=== PATIENT | female | born 1960 | race Asian ===

== ENCOUNTER 2023-01-05 04:49 | Emergency (ER) | payer OTHER, SELFPAY ==
[2023-01-05] VITALS (8 sets, daily range): BP systolic 97–188; BP diastolic 47–76; PULSE 65–82; RESP 14–20; TEMP 36.5; O2SAT 96–100; BMI 26.9
--- NOTE | ~2023-01-05 | XR_ITS ---
EXAMINATION: XR CHEST CLINICAL INFORMATION: Chest pain. COMPARISON: None available. TECHNIQUE: Frontal view of the chest was obtained. FINDINGS: No significant abnormality is noted involving the heart, lungs, mediastinum, bony thorax or soft tissues. XR/XR chest 1V IMPRESSION: No significant abnormality identified.
--- NOTE | 2023-01-05 04:51 | ECG_ITS ---
Test Reason : CP Blood Pressure : / mmHG Vent. Rate : 064 BPM Atrial Rate : 064 BPM P-R Int : 120 ms QRS Dur : 090 ms QT Int : 406 ms P-R-T Axes : 040 077 074 degrees QTc Int : 418 ms Normal sinus rhythm Normal ECG No previous ECGs available Referred By: Generic ED Physician Electronically Signed By:ANICETO WHELAN MD
[2023-01-05 05:09] LABS: MANUAL DIFF FLAG NO
[2023-01-05 05:10] LABS: Basophils Absolute Auto 0.1 X10*3/uL (0.0-0.2); Basophils Percent Auto 0.4 % (0-2); Eosinophils Absolute Auto 0.4 X10*3/uL (0.0-0.4); Eosinophils Percent Auto 3.3 % (0-4); Hematocrit 40.1 % (37.0-47.0); Hemoglobin 13.3 g/dl (12.0-16.0); Imm Gran Abs Auto 0.02 X10*3/uL (0.00-0.03); Imm Gran Pct Auto 0.2 % (0.0-0.4); Lymphocytes Absolute Auto 4.6 X10*3/uL (1.2-4.9); Lymphocytes Percent Auto 40.6 % (20-40); Mean Corpuscular HGB Conc 33.2 g/dl (31.0-35.0); Mean Corpuscular Hemoglobin 27.7 pg (27.0-33.0); Mean Corpuscular Volume 83.4 fL (80.0-98.0); Mean Platelet Volume 12.1 fL (9.4-12.3); Monocytes Absolute Auto 0.9 X10*3/uL (0.1-1.2); Monocytes Percent Auto 8.3 % (2-11); Neutrophils Absolute Auto 5.3 x10*3/uL (2.0-8.3); Neutrophils Percent Auto 47.2 % (45-73); Platelet Count 222 X10*3/uL (160-400); Red Blood Count 4.81 X10*6/uL (4.20-5.50); Red Cell Distribution Width 13.8 % (11.0-16.0); White Blood Count 11.3 X10*3/uL (4.8-10.8)
--- NOTE | 2023-01-05 05:12 | ED.CHESTPAIN ---
HPI - Chest Pain General Chief Complaint: Chest Pain Stated Complaint: Chest pain Time Seen by Provider: 01/05/23 05:12 Source: patient and family (Daughter) Mode of arrival: ambulatory Limitations: language barrier (Patient is from [place], 1st language is Mongolian, she does speak Urdu) History of Present Illness HPI narrative: 62-year-old female with history of high cholesterol and and diabetes x8 years on metformin who presents emergency department for evaluation of chest pain that woke her up at 02:00 hours. She states that the pain is a pressure-like sensation in her left chest, the pain radiates to her neck and down her left arm to her 4th and 5th fingers. She also feels short of breath. She states the pain was 7/10 at its worse and was 4/10 at the time of my evaluation. The patient states that 2 days prior she went for a walk and had a similar pain that lasted minutes and then resolved with rest. The patient took a medicine from [place] called Lowplat(Plavix) 75 mg orally prior to coming to the emergency department. Related Data Allergies Allergy/AdvReac Type Severity Reaction Status Date / Time Seasonal Allergies AdvReac Itching Verified 01/05/23 05:01 Review of Systems Review of Systems: Yes all other systems are reviewed and are negative [facility] Past Medical History Attestation statement: The following information was validated with the patient. [facility] Narrative: Past medical history: Diabetes mellitus, hypertension Social history: Patient lives in [place] is visiting her daughter, she denies tobacco, alcohol and drug use. Family history: She states that both parents had myocardial infarctions in their 60s. Social History Social History Alcohol intake: never Smoked in Last 30 Days: No Use of substances other than those prescribed or required for medical reasons: No Advance Directives: No Advance Directives Information Provided: Yes Physical Exam Vital Signs: Vital Signs: Last Vital Signs Temp 97.7 F 01/05/23 04:53 Pulse 77 01/05/23 05:50 Resp 14 01/05/23 05:50 BP 134/69 01/05/23 05:50 Pulse Ox 97 01/05/23 05:50 O2 Del Method Room Air 01/05/23 05:50 BMI result Body Mass Index 26.9 Vital signs were normal Exam: General: Awake, appears anxious and in distress secondary to pain Head: Normocephalic, atraumatic EENT: PERRL, Lids normal, sclera normal, conjunctiva normal, nose normal , ears normal, throat without erythema or exudates Neck: Supple, no adenopathy, no trachea midline or C-spine tenderness Lung: breath sounds symmetric, no wheezing, rales or rhonchi Chest: symmetric movement, nontender Heart: regular rate and rhythm, normal S1, S2 no murmurs or rubs Abdomen: soft, non-tender, nondistended, normal bowel sounds Back: no vertebral tenderness, no CVAT Extremities: no deformities, moves all extremities symmetrically Skin: no rashes, no lesion, normal color and warmth Neuro: Awake, alert, oriented, normal speech, cranial nerves intact, moves all extremities symmetrically Psych: Pleasant, anxious Medications Administered Generic Name Dose Route Start Last Admin Trade Name Freq PRN Reason Stop Dose Admin Sodium Chloride 1,000 mls @ 150 mls/hr 01/05/23 05:21 01/05/23 06:07 Ns IV 01/05/23 12:00 Infused .[id number] STA Infusion Nitroglycerin 0.4 mg 01/05/23 05:21 01/05/23 05:37 Nitroglycerin 0.4 Mg Tab.Subl SUBLINGUAL 0.4 mg [id number] PRN Administration Chest pain Discontinued Medications Generic Name Dose Route Start Last Admin Trade Name Freq PRN Reason Stop Dose Admin Aspirin 324 mg 01/05/23 05:21 01/05/23 05:27 Aspirin 81 Mg Tab.Chew PO 01/05/23 05:22 324 mg ONCE ONE Administration Atorvastatin Calcium 80 mg 01/05/23 05:23 01/05/23 05:28 Atorvastatin Calcium 80 Mg Tablet PO 01/05/23 05:24 80 mg ONCE ONE Administration Fentanyl 50 mcg 01/05/23 05:37 01/05/23 05:40 Fentanyl Citrate/Pf 100 Mcg/2 Ml Vial IVPUSH 01/05/23 05:38 50 mcg ONCE ONE Administration Protocol Heparin Sodium (Porcine) 4,000 unit 01/05/23 05:23 01/05/23 05:28 Heparin Sodium,Porcine 5,000 Unit/Ml Vial IVPUSH 01/05/23 05:24 4,000 unit ONCE ONE Administration Medical Decision Making Medical Decision Making MDM Narrative: 62-year-old female with history of high cholesterol and and diabetes x8 years on metformin who presents emergency department for evaluation of chest pain, neck pain and left arm pain that woke her up at 02:00 hours. Patient had similar pain several days prior with exertion, lasted minutes and was not a severe. Patient's 12 EKG is concerning for possible ST segment elevation in the inferior leads but less than 1 mm. Patient was given nitroglycerin 0.4 mg sublingually x2 which seem to make her pain worse. Pain was then given fentanyl 50 mg IV and fentanyl 25 mg IV with improvement of her pain. Patient was also given atorvastatin 80 mg orally and heparin 400 mg IV. I did discuss the patient's presentation with the interventional cardiology Dr. Guillen who accepted the patient as an ED to lab coordinator transfer. 06:21 My interpretation of the patient's one-view chest x-ray is normal mediastinum, no CHF or other abnormalities My interpretation patient's laboratory evaluation is as follows elevated WBC 85115, no anemia with an H&H of 13.3 and 40.1, platelet count was normal 222,000. High sensitive troponin I was below detectable limits. COVID-19 was negative. Patient was transfer to [facility] my ALS ambulance, at the time the patient left the emergency department she stated that her pain was improving and was 2/10. Differential Diagnosis Differential Diagnoses: The differential diagnosis associated with the presentation includes Admission/Observation Consideration of admission/observation: Escalation of care including admission/observation considered Consult Healthcare Provider Management of the patient was discussed with: Returner ([facility] interventional cardiology) Lab Data [facility] Lab Attestation statement: I reviewed the patient's lab results. See above MDM 01/05/23 05:05 01/05/23 05:05 Labs: Lab Results 01/05/23 01/05/23 Range/Units 05:05 05:36 WBC 11.3 H (4.8-10.8) X10*3/uL RBC 4.81 (4.20-5.50) X10*6/uL Hgb 13.3 (12.0-16.0) g/dl Hct 40.1 (37.0-47.0) % MCV 83.4 (80.0-98.0) fL MCH 27.7 (27.0-33.0) pg MCHC 33.2 (31.0-35.0) g/dl RDW 13.8 (11.0-16.0) % Plt Count 222 (160-400) X10*3/uL MPV 12.1 (9.4-12.3) fL Immature Gran % (Auto) 0.2 (0.0-0.4) % Neut % (Auto) 47.2 (45-73) % Lymph % (Auto) 40.6 H (20-40) % [place] % (Auto) 8.3 (2-11) % Eos % (Auto) 3.3 (0-4) % Baso % (Auto) 0.4 (0-2) % Lymph # (Auto) 4.6 (1.2-4.9) X10*3/uL [place] # (Auto) 0.9 (0.1-1.2) X10*3/uL Eos # (Auto) 0.4 (0.0-0.4) X10*3/uL Baso # (Auto) 0.1 (0.0-0.2) X10*3/uL Abs Immat Gran (auto) 0.02 (0.00-0.03) X10*3/uL Absolute Neuts (auto) 5.3 (2.0-8.3) x10*3/uL Absolute Nucleated RBC 0.000 (0.0-0.012) X10*3/uL Nucleated RBC % (auto) 0.0 (0.0-0.2) /100WBC Sodium 141 (135-145) mmol/L Potassium 4.4 (3.3-5.1) mmol/L Chloride 105 (96-108) mmol/L Carbon Dioxide 25 (22-29) mmol/L Anion Gap 15 (12-20) BUN 17 H (9-16) mg/dL Creatinine 0.83 (0.5-1.4) mg/dL Estim Creat Clear Calc 67.2 Estimated GFR > 60 Random Glucose 156 H (60-115) mg/dL Calcium 9.4 (8.4-10.2) mg/dL Total Bilirubin 0.5 (0.0-1.0) mg/dL AST 25 (5-31) U/L ALT 27 (0-31) U/L Alkaline Phosphatase 61 (39-117) U/L Troponin I High Sens < 2.7 (<3.5-17.0) ng/L Total Protein 7.6 (6.5-8.0) g/dL Albumin 4.4 (3.5-5.0) g/dL COVID-19 (JENNIFER) Negative (Negative) COVID-19 Clin Com See Note Independent Interpretation I performed an independent interpretation of an: EKG Interpretation: My independent interpretation the patient's 12 EKG done at 04:54 hours is as follows: Normal sinus rhythm with a rate of 64, normal WI interval, QRS duration QTC interval, less than [address] segment elevation leads 2, 3 and AVF, normal T-waves, no PACs or PVCs Radiology Impression Discussion of test interpretation with radiology: I have reviewed the radiologist's reading. Radiologist Impression: XR chest 1V IMPRESSION: No significant abnormality identified. Dictated By: Jerzy Ortiz Critical Care Time Critical Care Time Critical Care Time: Yes Total Critical Care Time: 45 Attestation: Critical Care: The patient was critically ill with a high probability of imminent or life threatening deterioration. I spent greater than 30 minutes of discontinuous time evaluating the patient,delivering critical care at the bedside, discussing and evaluating pertinent data with consultants. Critical care time does not include time spent performing separately billable procedures or teaching. Total time spent performing critical care was 45 minutes. Discharge Plan Discharge Clinical Impression: ST elevation myocardial infarction (STEMI) Patient Disposition: [facility] Transfer Details: ED to cardiac catheterization lab transfer [facility]
[2023-01-05 05:27] LABS: Alanine Aminotransferase 27 U/L (0-31); Albumin Level 4.4 g/dL (3.5-5.0); Alkaline Phosphatase 61 U/L (39-117); Anion Gap 15 (12-20); Aspartate Amino Transferase 25 U/L (5-31); Bilirubin Total 0.5 mg/dL (0.0-1.0); Blood Urea Nitrogen 17 mg/dL (9-16); Calcium 9.4 mg/dL (8.4-10.2); Carbon Dioxide 25 mmol/L (22-29); Chloride 105 mmol/L (96-108); Creatinine Clr Calc Pharmacy 67.2; Estimated Glomerular Filt Rate > 60; Glucose Random 156 mg/dL (60-115); Potassium 4.4 mmol/L (3.3-5.1); Sodium 141 mmol/L (135-145); Total Protein 7.6 g/dL (6.5-8.0)
[2023-01-05] MEDS: Nitroglycerin 0.4 MG TAB.SUBL SUBLINGUAL ×2 (05:27→05:37)
[2023-01-05] MEDS: Aspirin 81 MG TAB.CHEW 324 MG PO (05:27)
[2023-01-05] MEDS: Heparin Sodium,Porcine 5,000 UNIT/ML VIAL 4000 UNIT IVPUSH (05:28)
[2023-01-05] MEDS: Atorvastatin Calcium 80 MG TABLET PO (05:28)
[2023-01-05] MEDS: 0.9 % Sodium Chloride 1,000 ML 150 ML IV (05:29)
[2023-01-05 05:30] LABS: Troponin-I High Sensitivity < 2.7 ng/L (<3.5-17.0)
--- NOTE | 2023-01-05 05:32 | PC.NURSE ---
pt medicated per mar ivf infusing. vss. nsr on monitor 70 bpm.
[2023-01-05] MEDS: fentaNYL citrate/PF 100 MCG/2 ML VIAL 50 MCG IVPUSH (05:40)
[2023-01-05 05:59] LABS: COVID-19 Test Negative (Negative); IDNOW Serial# BCCEAD1C
--- NOTE | 2023-01-05 06:02 | PC.NURSE ---
Dr. Minor at bedside until pt moved into stretcher to transport to [facility] minilab operator. 0530 first nitro given. 0535 pt stated pain worsened 2nd nitro administered. 2nd iv established. 0545 50 mcg fetanyl given. ivf placed in pressure bag per Dr. Minor request. 0556 ems at bedside; Dr. Minor gave report to ems crew. Verbal order to give pt 25 mcg fetanyl; administered per verbal order.
--- NOTE | 2023-01-05 06:15 | PC.NURSE ---
report given to M3 RN at [facility].
[2023-01-05] MEDS: fentaNYL citrate/PF 100 MCG/2 ML VIAL 25 MCG IVPUSH (07:09)
--- NOTE | 2023-01-05 07:09 | PC.NURSE ---
25 mcg fetanyl administered upon pt leaving with cori unable to scan med.
== END 2023-01-05 07:11 | disposition short-term general hospital (02) ==
PROVIDERS: Emergency Provider Emergency Medicine Emergency Medical Services
DX: I21.19 ST elevation (STEMI) myocardial infarction involving other coronary artery of inferior wall (principal); R06.02 Shortness of breath; Z11.52 Encounter for screening for COVID-19; E11.9 Type 2 diabetes mellitus without complications; I10 Essential (primary) hypertension; E78.5 Hyperlipidemia, unspecified; Z79.84 Long term (current) use of oral hypoglycemic drugs
CPT/HCPCS: 36415; 71045; 80053; 84484; 85025; 87635; 93005; 96361; 96374; 96375; 96376; 99284; 99285; J1643; J3010